=== PATIENT | male | born 1975 | race Hispanic/Latino ===

== ENCOUNTER 2017-11-15 08:07 | Emergency (ER) | payer OTHER ==
[2017-11-15] MEDS ORDERED: BENZONATATE 100 MG CAPSULE PO ONE (08:37)
[2017-11-15] MEDS ORDERED: IBUPROFEN 800 MG TAB ONE (08:37)
[2017-11-15 08:38] LABS: RAPID GROUP A STREP NEGATIVE (NEGATIVE)
[2017-11-15] MEDS ORDERED: IPRATROPIUM/ALBUTEROL SULFATE 3 ML SOLUTION IH ONE (08:40)
[2017-11-15] MEDS ORDERED: AZITHROMYCIN 250 MG TABLET PO ONE (08:57)
== END 2017-11-15 10:35 | disposition home or self-care (01) ==
LOC: EDH 08:07
DX: J15.8 Pneumonia due to other specified bacteria (principal); J02.9 Acute pharyngitis, unspecified; H92.09 Otalgia, unspecified ear
CPT/HCPCS: 71046; 87804; 87880

== ENCOUNTER 2021-06-01 11:16 | Emergency (ER) | payer OTHER ==
[~2021-06-01] VITALS: Ht 182.9 cm; Wt 97.5 kg
[2021-06-01 11:23] VITALS: BP 133/84
[2021-06-01] MEDS ORDERED: CYCLOBENZAPRINE HCL 10 MG TABLET PO ONE (12:00)
[2021-06-01] MEDS ORDERED: HYDROCODONE/ACETAMINOPHEN 10/325 MG TAB PO ONE (12:00)
[2021-06-01] MEDS ORDERED: NAPR-1180 PO (13:22)
[2021-06-01 13:48] VITALS: BP 136/70
== END 2021-06-01 14:30 | disposition home or self-care (01) ==
LOC: EDH 11:16
DX: S82.831A Other fracture of upper and lower end of right fibula, initial encounter for closed fracture (principal); S39.012A Strain of muscle, fascia and tendon of lower back, initial encounter; S86.911A Strain of unspecified muscle(s) and tendon(s) at lower leg level, right leg, initial encounter; S80.01XA Contusion of right knee, initial encounter; S90.31XA Contusion of right foot, initial encounter; S90.02XA Contusion of left ankle, initial encounter; I10 Essential (primary) hypertension; E78.00 Pure hypercholesterolemia, unspecified; E11.9 Type 2 diabetes mellitus without complications; Z79.1 Long term (current) use of non-steroidal anti-inflammatories (NSAID); X58.XXXA Exposure to other specified factors, initial encounter; Y93.89 Activity, other specified; Y92.89 Other specified places as the place of occurrence of the external cause; Y99.8 Other external cause status
CPT/HCPCS: 72100; 73562; 73590; 73610; 73630